=== PATIENT | female | born 1970 | race Caucasian/White ===

== ENCOUNTER 2018-06-28 15:06 | Emergency (ER) | payer MEDICAID ==
[~2018-06-28] VITALS: Ht 165.1 cm; Wt 46.5 kg
[2018-06-28 15:12] VITALS: BP 143/102
--- NOTE | 2018-06-28 16:57 | NUR ---
Patient/Caregiver given discharge instructions and they have confirmed that they understand the instructions. Patient ambulatory with steady gait.
== END 2018-06-28 17:05 | disposition home or self-care (01) ==
LOC: ED 16:58
DX: S52.501A Unspecified fracture of the lower end of right radius, initial encounter for closed fracture (principal); F17.200 Nicotine dependence, unspecified, uncomplicated; W19.XXXA Unspecified fall, initial encounter; Y93.89 Activity, other specified; Y92.89 Other specified places as the place of occurrence of the external cause; Y99.8 Other external cause status
CPT/HCPCS: 29125; 99283

== ENCOUNTER 2018-10-29 21:50 | Emergency (ER) | payer MEDICAID ==
[~2018-10-29] VITALS: Ht 154.9 cm; Wt 46.0 kg
[2018-10-29 23:56] VITALS: BP 111/82
== END 2018-10-30 00:06 | disposition home or self-care (01) ==
LOC: ED 10-30 00:03
DX: F10.120 Alcohol abuse with intoxication, uncomplicated (principal); F15.129 Other stimulant abuse with intoxication, unspecified; Y90.0 Blood alcohol level of less than 20 mg/100 ml; Z72.9 Problem related to lifestyle, unspecified; M19.90 Unspecified osteoarthritis, unspecified site; I10 Essential (primary) hypertension; F17.200 Nicotine dependence, unspecified, uncomplicated
CPT/HCPCS: 36415; 80053; 80307; 81001; 85025; 99283

== ENCOUNTER 2019-07-30 13:34 | Emergency (ER) | payer MEDICAID ==
[~2019-07-30] VITALS: Ht 165.1 cm; Wt 47.3 kg
[2019-07-30] MEDS ORDERED: PROPOFOL 10 MG/ML, 20ML IVPush ONE (15:00)
[2019-07-30] MEDS ORDERED: MIDAZOLAM 1 MG/ML, 2ML IVPush ONE (15:00)
[2019-07-30] MEDS ORDERED: MIDAZOLAM 1 MG/ML, 2ML ONE (15:21)
[2019-07-30] MEDS ORDERED: PROPOFOL 10 MG/ML, 20ML ONE (15:21)
--- NOTE | 2019-07-30 16:32 | NUR ---
PLEASE REFER TO PRECEDURAL SEDATION PACKET FOR VITALS. PT HAD DENTAL MOLD REMOVED FROM HER UPPER TEETH. PT TOLERATED PROCEDURE WELL AND LEFT UNDER SUPERVISION OF BOYFRIEND.
== END 2019-07-30 16:34 ==
LOC: ED 14:57
DX: S00.552A Superficial foreign body of oral cavity, initial encounter (principal); K08.89 Other specified disorders of teeth and supporting structures; I10 Essential (primary) hypertension; X58.XXXA Exposure to other specified factors, initial encounter; Y93.89 Activity, other specified; Y92.098 Other place in other non-institutional residence as the place of occurrence of the external cause; Y99.8 Other external cause status
CPT/HCPCS: 99285